=== PATIENT | male | born 1955 | race Caucasian/White ===

== ENCOUNTER 2019-06-26 09:43 | Emergency (ER) | payer BC, OTHER, SELFPAY ==
[~2019-06-26] VITALS: Ht 182.9 cm; Wt 79.8 kg
[2019-06-26 09:59] VITALS: Ht 182.9 cm; Wt 79.8 kg
[2019-06-26 10:33] VITALS: BP 94/64
== END 2019-06-26 11:03 | disposition home or self-care (01) ==
LOC: ED 09:43
DX: B34.9 Viral infection, unspecified (principal); I10 Essential (primary) hypertension; Z20.828 Contact with and (suspected) exposure to other viral communicable diseases; Z88.0 Allergy status to penicillin